=== PATIENT | male | born 1935 | race Caucasian/White ===

== ENCOUNTER 2019-07-18 12:12 | Inpatient (IN) ==
[2019-07-18] MEDS ORDERED: *HR* FentaNYL (PF) 100 MCG/2 ML VIAL IVP ONE (14:38)
[2019-07-18] MEDS ORDERED: Ondansetron ODT 4 MG TAB.RAPDIS SL PRN (14:45)
[2019-07-18] MEDS ORDERED: *HR* HYDROcodone/Acet 5/325 mg TABLET PO PRN (14:45)
[2019-07-18] MEDS ORDERED: *HR* Enoxaparin 40 MG/0.4 ML SYRINGE SQ ONE (15:58)
[2019-07-18] MEDS: Budesonide/Formoterol 160/4.5 1 PUFF INH IH SCH ×2 (16:22→19:54)
[2019-07-18] MEDS: *HR* OxyCODONE Immed Rel 5 MG TABLET PO PRN (18:20)
[2019-07-18] MEDS ORDERED: Isovue-370 500 ML BOTTLE IVP ONE (19:51)
[2019-07-19 02:15] LABS: ABG Base Excess 2 mEq/L (-2 to 3); ABG HCO3 25 mEq/L (21-27); ABG Oxygen Saturation 94 % (95-98); ABG PCO2 32 mmHg (35-45); ABG PO2 65 mmHg (85-104); ABG TCO2 26 mEq/L (20-26)
[2019-07-19] MEDS ORDERED: *HR* HYDROmorphone (PF) 1 MG/ML SYRINGE IVP ONE (02:36)
[2019-07-19 04:23] LABS: Basophils % 0.3 %; Eosinophils # 0.2 K/mcL (0.0-0.6); Eosinophils % 2.8 %; Hematocrit 37.4 % (37.5-50.1); Hemoglobin 12.3 g/dL (12.9-16.9); Immature Granulocytes % 0.3 % (0-4); Lymphocytes # 0.6 K/mcL (0.6-4.6); Lymphocytes % 10.4 %; Mean Corpuscular HGB Conc 32.9 g/dL (31.6-35.5); Mean Corpuscular Hemoglobin 31.1 pg (28.0-33.3); Mean Corpuscular Volume 94.7 fL (83.0-100.0); Mean Platelet Volume 10.3 fL (9.4-12.4); Monocytes # 0.7 K/mcL (0.0-1.3); Monocytes % 10.9 %; Neutrophils # 4.7 K/mcL (1.6-8.9); Platelet Count 179 K/mcL (140-400); Red Blood Count 3.95 M/mcL (4.19-5.50); Red Cell Distribution Width 13.6 % (11.5-14.5); Segmented Neutrophils % 75.3 %; White Blood Count 6.2 K/mcL (4.3-11.1)
[2019-07-19 04:42] LABS: BUN/Creatinine Ratio 28 (6-26); Blood Urea Nitrogen 23 mg/dL (8-23); Calcium 8.9 mg/dL (8.6-10.3); Carbon Dioxide 24 mEq/L (23-29); Chloride 103 mEq/L (98-107); Glucose 124 mg/dL (70-105); Osmolality,Calculated 285 (280-300); Potassium 4.1 mEq/L (3.5-5.1); Sodium 135 mEq/L (136-145); eGFR For African Americans > 60 (> 60); eGFR For Non-African Americans > 60 (> 60)
[2019-07-19] MEDS: Pantoprazole 40 MG VIAL IVP SCH (07:36)
[2019-07-19] MEDS: Carbidopa/Levodopa 25/250 TABLET PO SCH ×4 (08:02→17:41)
[2019-07-19] MEDS ORDERED: Furosemide 40 MG/4 ML VIAL IVP SCH (09:00)
[2019-07-19] MEDS: Budesonide/Formoterol 160/4.5 1 PUFF INH IH SCH ×2 (10:04→22:43)
[2019-07-19] MEDS: Tiotropium 18 MCG inhalation IH SCH (10:05)
[2019-07-19] MEDS ORDERED: *HR* Enoxaparin 40 MG/0.4 ML SYRINGE SQ ONE (10:31)
[2019-07-19] MEDS ORDERED: methylPREDNISolone 125 MG/2 ML VIAL IVP ONE (10:32)
[2019-07-19] MEDS ORDERED: Doxycycline 100 MG in 0.9 % Sodium Chloride Mini Bag 100 ML IVPB SCH (12:00)
[2019-07-19] MEDS: Acetaminophen 325 MG TABLET PO PRN (15:08)
[2019-07-19] MEDS ORDERED: *HR* Heparin 5,000 UNIT/ML VIAL IVP ONE (15:42)
[2019-07-19] MEDS ORDERED: *HR* Heparin 5,000 UNIT/ML VIAL IVP PRN ×2 (15:42)
[2019-07-19] MEDS ORDERED: Heparin 25,000 UNIT/250 ML D5W 25,000 UNIT/250 ML IV.SOLN IVC SCH (15:45)
[2019-07-19 16:47] LABS: Hematocrit 38.2 % (37.5-50.1); Hemoglobin 12.4 g/dL (12.9-16.9); Mean Corpuscular HGB Conc 32.5 g/dL (31.6-35.5); Mean Corpuscular Hemoglobin 30.7 pg (28.0-33.3); Mean Corpuscular Volume 94.6 fL (83.0-100.0); Mean Platelet Volume 10.9 fL (9.4-12.4); Platelet Count 180 K/mcL (140-400); Red Blood Count 4.04 M/mcL (4.19-5.50); Red Cell Distribution Width 13.8 % (11.5-14.5); White Blood Count 5.9 K/mcL (4.3-11.1)
[2019-07-19 16:49] LABS: Heparin anti-factor XA UFH 0.32 IU/mL (0.30-0.70); INR 1.3; Prothrombin Time 14.6 Seconds (9.4-12.1)
[2019-07-19] MEDS ORDERED: Ringers Solution, Lactated 1,000 ML ONE (16:59)
[2019-07-19] MEDS ORDERED: Ringers Solution, Lactated 1,000 ML IVC ONE (17:40)
[2019-07-19 17:56] LABS: Alanine Aminotransferase 3 Units/L (7-52); Albumin 3.8 g/dL (3.5-5.7); Albumin/Globulin Ratio 1.6 (1.1-2.2); Alkaline Phosphatase 82 Units/L (34-104); Aspartate Amino Transferase 14 Units/L (13-39); Bilirubin,Direct 0.5 mg/dL (0.0-0.2); Bilirubin,Total 1.5 mg/dL (0.3-1.0); Globulin 2.4 g/dL (2.4-3.5); Total Protein 6.2 g/dL (6.4-8.9); Troponin I < 0.03 ng/mL (< 0.04)
[2019-07-19] MEDS ORDERED: Doxycycline 200 MG in 0.9 % Sodium Chloride 250 ML IVPB SCH (18:00)
[2019-07-19] MEDS ORDERED: lisinopriL 10 MG TABLET PO SCH (18:30)
[2019-07-19] MEDS: Cefepime HCl 2,000 MG in Water for inj. (sterile) 20 ML IVP SCH (21:36)
[2019-07-19] MEDS: MetroNIDAZOLE 500 MG/100 ML 500 MG/100 ML BAG IVPB SCH (21:37)
[2019-07-20] MEDS: Acetaminophen 325 MG TABLET PO PRN (00:16)
[2019-07-20] MEDS ORDERED: Acetaminophen IV 1,000 MG/100 ML INFUS..BTL IVPB ONE (00:48)
[2019-07-20] MEDS ORDERED: *HR* Metoprolol 5 MG/5 ML VIAL IVP ONE ×2 (01:12→01:16)
[2019-07-20] MEDS: *HR* OxyCODONE Immed Rel 5 MG TABLET PO PRN (03:16)
[2019-07-20] MEDS: Cefepime HCl 2,000 MG in Water for inj. (sterile) 20 ML IVP SCH ×3 (04:02→20:29)
[2019-07-20] MEDS: MetroNIDAZOLE 500 MG/100 ML 500 MG/100 ML BAG IVPB SCH ×2 (04:02→14:30)
[2019-07-20] MEDS: DilTIAZem 50 MG in 0.9 % Sodium Chloride 40 ML IVC SCH (05:08)
[2019-07-20 06:30] LABS: Basophils % 0.1 %; Hematocrit 36.3 % (37.5-50.1); Hemoglobin 11.8 g/dL (12.9-16.9); Immature Granulocytes % 0.5 % (0-4); Lymphocytes # 0.3 K/mcL (0.6-4.6); Lymphocytes % 2.2 %; Mean Corpuscular HGB Conc 32.5 g/dL (31.6-35.5); Mean Corpuscular Hemoglobin 30.9 pg (28.0-33.3); Mean Platelet Volume 10.7 fL (9.4-12.4); Monocytes # 1.1 K/mcL (0.0-1.3); Monocytes % 8.4 %; Neutrophils # 12.1 K/mcL (1.6-8.9); Platelet Count 207 K/mcL (140-400); Red Blood Count 3.82 M/mcL (4.19-5.50); Red Cell Distribution Width 13.7 % (11.5-14.5); Segmented Neutrophils % 88.8 %; White Blood Count 13.6 K/mcL (4.3-11.1)
[2019-07-20 06:50] LABS: Alanine Aminotransferase 10 Units/L (7-52); Albumin 3.8 g/dL (3.5-5.7); Albumin/Globulin Ratio 1.7 (1.1-2.2); Alkaline Phosphatase 77 Units/L (34-104); Aspartate Amino Transferase 20 Units/L (13-39); BUN/Creatinine Ratio 31 (6-26); Bilirubin,Total 1.7 mg/dL (0.3-1.0); Blood Urea Nitrogen 30 mg/dL (8-23); Calcium 9.4 mg/dL (8.6-10.3); Carbon Dioxide 23 mEq/L (23-29); Chloride 104 mEq/L (98-107); Globulin 2.3 g/dL (2.4-3.5); Glucose 137 mg/dL (70-105); Magnesium 1.9 mg/dL (1.6-2.6); Osmolality,Calculated 296 (280-300); Phosphorous 2.8 mg/dL (2.7-4.5); Potassium 4.2 mEq/L (3.5-5.1); Sodium 139 mEq/L (136-145); Total Protein 6.1 g/dL (6.4-8.9); eGFR For African Americans > 60 (> 60); eGFR For Non-African Americans > 60 (> 60)
[2019-07-20] MEDS: Carbidopa/Levodopa 25/250 TABLET PO SCH ×4 (07:43→18:00)
[2019-07-20] MEDS: Pantoprazole 40 MG VIAL IVP SCH (07:44)
[2019-07-20] MEDS: Tiotropium 18 MCG inhalation IH SCH (07:54)
[2019-07-20] MEDS: Budesonide/Formoterol 160/4.5 1 PUFF INH IH SCH ×2 (07:55→21:41)
[2019-07-20] MEDS ORDERED: *HR* Midazolam HCl 2 MG/2 ML VIAL IV ONE (09:06)
[2019-07-20] MEDS ORDERED: *HR* Etomidate 20 MG/10 ML AMPUL IVP ONE (09:06)
[2019-07-20] MEDS ORDERED: *HR* Midazolam HCl 5 MG/5 ML VIAL IVP ONE (09:06)
[2019-07-20] MEDS ORDERED: Amiodarone Premix 360 MG/200 ML BAG IVC ONE ×2 (09:22→09:28)
[2019-07-20] MEDS ORDERED: Amiodarone Premix 150 MG/100 ML BAG IVPB ONE (09:22)
[2019-07-20] MEDS ORDERED: *HR* Magnesium Sulfate 2 GM/50 ML PIGGYBACK IVPB ONE (09:31)
[2019-07-20] MEDS ORDERED: *HR* Norepinephrine 4 MG/4 ML VIAL IVC ONE (09:31)
[2019-07-20] MEDS ORDERED: *HR* Adenosine 6 MG/2 ML SYRINGE IVP ONE (09:31)
[2019-07-20] MEDS ORDERED: *HR* EPINEPHrine 1 MG/10 ML SYRINGE IVP ONE (09:31)
[2019-07-20] MEDS: Dexmedetomidine HCl 400 MCG/100 ML MLS IVC SCH (09:47)
[2019-07-20] MEDS ORDERED: *HR* LORazepam 2 MG/ML VIAL ONE (09:54)
[2019-07-20 10:35] LABS: ABG Base Excess -5 mEq/L (-2 to 3); ABG HCO3 21 mEq/L (21-27); ABG Oxygen Saturation 95 % (95-98); ABG PCO2 40 mmHg (35-45); ABG PH 7.33 pH Units (7.32-7.45); ABG PO2 78 mmHg (85-104); ABG TCO2 22 mEq/L (20-26)
[2019-07-20] MEDS ORDERED: *HR* LORazepam 2 MG/ML VIAL IVP ONE (10:35)
[2019-07-20] MEDS ORDERED: Phenylephrine 10 MG in 0.9 % Sodium Chloride 250 ML IVC SCH (10:45)
[2019-07-20] MEDS ORDERED: Ringers Solution, Lactated 1,000 ML ONE (11:07)
[2019-07-20] MEDS: Norepinephrine 4 MG in 0.9 % Sodium Chloride 250 ML IVC SCH ×4 (11:35→22:54)
[2019-07-20] MEDS ORDERED: *HR* Midazolam HCl 2 MG/2 ML VIAL IVP PRN (11:49)
[2019-07-20 11:51] LABS: ABG Base Excess -6 mEq/L (-2 to 3); ABG HCO3 21 mEq/L (21-27); ABG Oxygen Saturation 100 % (95-98); ABG PCO2 44 mmHg (35-45); ABG PH 7.28 pH Units (7.32-7.45); ABG PO2 473 mmHg (85-104); ABG TCO2 22 mEq/L (20-26); Blood Gas Modality ASSIST CONTROL; Blood Gas VT 500 cc
[2019-07-20] MEDS ORDERED: Ringers Solution, Lactated 1,000 ML IVC ONE (12:08)
[2019-07-20] MEDS: FentaNYL (PF) 1,000 MCG in 0.9 % Sodium Chloride 80 ML IVC SCH ×2 (12:10→18:09)
[2019-07-20 13:11] LABS: Basophils % 0.1 %; Hematocrit 34.3 % (37.5-50.1); Hemoglobin 11.2 g/dL (12.9-16.9); Immature Granulocytes % 1.8 % (0-4); Lymphocytes # 0.3 K/mcL (0.6-4.6); Lymphocytes % 1.4 %; Mean Corpuscular HGB Conc 32.7 g/dL (31.6-35.5); Mean Corpuscular Hemoglobin 30.9 pg (28.0-33.3); Mean Corpuscular Volume 94.5 fL (83.0-100.0); Mean Platelet Volume 10.6 fL (9.4-12.4); Monocytes # 1.9 K/mcL (0.0-1.3); Monocytes % 9.1 %; Neutrophils # 18.7 K/mcL (1.6-8.9); Platelet Count 221 K/mcL (140-400); Red Blood Count 3.63 M/mcL (4.19-5.50); Red Cell Distribution Width 13.5 % (11.5-14.5); Segmented Neutrophils % 87.6 %
[2019-07-20 13:16] LABS: VBG Ionized Calcium 1.24 mmol/L (1.15-1.35)
[2019-07-20] MEDS ORDERED: 0.9 % Sodium Chloride 1,000 ML ONE (13:18)
[2019-07-20 13:24] LABS: White Blood Count 21.3 K/mcL (4.3-11.1)
[2019-07-20 13:30] LABS: Alanine Aminotransferase 9 Units/L (7-52); Albumin 3.4 g/dL (3.5-5.7); Albumin/Globulin Ratio 1.4 (1.1-2.2); Alkaline Phosphatase 71 Units/L (34-104); Aspartate Amino Transferase 33 Units/L (13-39); BUN/Creatinine Ratio 31 (6-26); Bilirubin,Total 1.7 mg/dL (0.3-1.0); Blood Urea Nitrogen 34 mg/dL (8-23); Calcium 9.8 mg/dL (8.6-10.3); Carbon Dioxide 22 mEq/L (23-29); Chloride 105 mEq/L (98-107); Globulin 2.4 g/dL (2.4-3.5); Glucose 259 mg/dL (70-105); Osmolality,Calculated 305 (280-300); Potassium 3.4 mEq/L (3.5-5.1); Sodium 139 mEq/L (136-145); Total Protein 5.8 g/dL (6.4-8.9); eGFR For African Americans > 60 (> 60); eGFR For Non-African Americans > 60 (> 60)
[2019-07-20] MEDS ORDERED: *HR* Midazolam HCl 2 MG/2 ML VIAL IVP ONE (13:35)
[2019-07-20] MEDS ORDERED: Vasopressin 40 UNIT in D5% in Water 100 ML IVC SCH (13:45)
[2019-07-20] MEDS ORDERED: Calcium Chloride 1,000 MG in 0.9 % Sodium Chloride 100 ML IVPB STA (14:06)
[2019-07-20] MEDS: Amiodarone Premix 360 MG/200 ML BAG IVC SCH (15:12)
[2019-07-20 15:41] LABS: ABG Base Excess 1 mEq/L (-2 to 3); ABG HCO3 25 mEq/L (21-27); ABG Oxygen Saturation 100 % (95-98); ABG PCO2 39 mmHg (35-45); ABG PH 7.42 pH Units (7.32-7.45); ABG PO2 162 mmHg (85-104); ABG TCO2 27 mEq/L (20-26); Blood Gas VT 500 cc
[2019-07-20] MEDS ORDERED: *HR* Heparin 5,000 UNIT/ML VIAL IVP PRN ×2 (17:58)
[2019-07-20] MEDS ORDERED: *HR* Heparin 5,000 UNIT/ML VIAL IVP ONE (17:58)
[2019-07-20] MEDS: Hydrocortisone Sodium Succ 100 MG/2 ML VIAL IVP SCH (18:00)
[2019-07-20 18:47] LABS: Hematocrit 32.6 % (37.5-50.1); Hemoglobin 10.6 g/dL (12.9-16.9); Mean Corpuscular HGB Conc 32.5 g/dL (31.6-35.5); Mean Corpuscular Hemoglobin 31.5 pg (28.0-33.3); Mean Corpuscular Volume 96.7 fL (83.0-100.0); Mean Platelet Volume 10.5 fL (9.4-12.4); Platelet Count 195 K/mcL (140-400); Red Blood Count 3.37 M/mcL (4.19-5.50); Red Cell Distribution Width 13.8 % (11.5-14.5); White Blood Count 15.7 K/mcL (4.3-11.1)
[2019-07-20 18:50] LABS: INR 1.3; Prothrombin Time 14.4 Seconds (9.4-12.1)
[2019-07-20 18:56] LABS: Heparin anti-factor XA UFH 1.17 IU/mL (0.30-0.70)
[2019-07-20] MEDS ORDERED: Perflutren Lipid Microsphere 1.3 ML in 0.9 % Sodium Chloride 8.7 ML IVP ONE (19:27)
[2019-07-20] MEDS: Heparin 25,000 UNIT/250 ML D5W 25,000 UNIT/250 ML IV.SOLN IVC SCH (21:58)
[2019-07-21] MEDS: Hydrocortisone Sodium Succ 100 MG/2 ML VIAL IVP SCH ×5 (00:02→23:44)
[2019-07-21] MEDS: Amiodarone Premix 360 MG/200 ML BAG IVC SCH ×2 (03:21→15:30)
[2019-07-21] MEDS: FentaNYL (PF) 1,000 MCG in 0.9 % Sodium Chloride 80 ML IVC SCH ×2 (03:51→13:34)
[2019-07-21] MEDS: Cefepime HCl 2,000 MG in Water for inj. (sterile) 20 ML IVP SCH ×3 (03:53→19:52)
[2019-07-21] MEDS: DilTIAZem 50 MG in 0.9 % Sodium Chloride 40 ML IVC SCH (03:55)
[2019-07-21 03:59] LABS: ABG Base Excess 2 mEq/L (-2 to 3); ABG HCO3 27 mEq/L (21-27); ABG Oxygen Saturation 99 % (95-98); ABG PCO2 43 mmHg (35-45); ABG PO2 124 mmHg (85-104); ABG TCO2 28 mEq/L (20-26); Blood Gas Modality ASSIST CONTROL; Blood Gas VT 500 cc
[2019-07-21 04:47] LABS: Basophils % 0.1 %; Hematocrit 31.7 % (37.5-50.1); Hemoglobin 10.3 g/dL (12.9-16.9); Lymphocytes # 0.4 K/mcL (0.6-4.6); Lymphocytes % 3.5 %; Mean Corpuscular HGB Conc 32.5 g/dL (31.6-35.5); Mean Corpuscular Hemoglobin 31.4 pg (28.0-33.3); Mean Corpuscular Volume 96.6 fL (83.0-100.0); Mean Platelet Volume 11.1 fL (9.4-12.4); Monocytes # 0.9 K/mcL (0.0-1.3); Monocytes % 7.4 %; Neutrophils # 10.1 K/mcL (1.6-8.9); Platelet Count 171 K/mcL (140-400); Red Blood Count 3.28 M/mcL (4.19-5.50); Red Cell Distribution Width 13.8 % (11.5-14.5); White Blood Count 11.4 K/mcL (4.3-11.1)
[2019-07-21 05:07] LABS: BUN/Creatinine Ratio 45 (6-26); Blood Urea Nitrogen 37 mg/dL (8-23); Calcium 8.3 mg/dL (8.6-10.3); Carbon Dioxide 23 mEq/L (23-29); Chloride 108 mEq/L (98-107); Glucose 148 mg/dL (70-105); Osmolality,Calculated 299 (280-300); Potassium 4.2 mEq/L (3.5-5.1); Sodium 139 mEq/L (136-145); Vancomycin,Random 6 mcg/mL; eGFR For African Americans > 60 (> 60); eGFR For Non-African Americans > 60 (> 60)
[2019-07-21] MEDS: Budesonide/Formoterol 160/4.5 1 PUFF INH IH SCH ×2 (07:37→21:42)
[2019-07-21] MEDS: Pantoprazole 40 MG VIAL IVP SCH (08:27)
[2019-07-21] MEDS: Carbidopa/Levodopa 25/250 TABLET PO SCH ×4 (09:36→18:12)
[2019-07-21 09:38] LABS: Alanine Aminotransferase 10 Units/L (7-52); Albumin 3.2 g/dL (3.5-5.7); Albumin/Globulin Ratio 1.5 (1.1-2.2); Alkaline Phosphatase 62 Units/L (34-104); Aspartate Amino Transferase 22 Units/L (13-39); Bilirubin,Direct 0.2 mg/dL (0.0-0.2); Bilirubin,Indirect 0.5 mg/dL (0.0-1.0); Bilirubin,Total 0.7 mg/dL (0.3-1.0); Globulin 2.1 g/dL (2.4-3.5); Total Protein 5.3 g/dL (6.4-8.9)
[2019-07-21] MEDS: Dexmedetomidine HCl 400 MCG/100 ML MLS IVC SCH (09:54)
[2019-07-21] MEDS: Albumin Human 5% 12.5 GM/250 ML IV.SOLN IVC SCH ×2 (10:41→13:26)
[2019-07-21] MEDS ORDERED: Isovue-370 500 ML BOTTLE IVP ONE (10:42)
[2019-07-21] MEDS: MetroNIDAZOLE 500 MG/100 ML 500 MG/100 ML BAG IVPB SCH ×2 (12:25→19:52)
[2019-07-21] MEDS ORDERED: Artificial Tears SOLN 15 ML BOTTLE BOTH EYES PRN (12:27)
[2019-07-21] MEDS: Chlorhexidine Rinse 15 ML MOUTHWASH MM SCH ×2 (13:29→19:51)
[2019-07-21 14:30] LABS: ABG Base Excess 2 mEq/L (-2 to 3); ABG HCO3 25 mEq/L (21-27); ABG Oxygen Saturation 97 % (95-98); ABG PCO2 34 mmHg (35-45); ABG PH 7.48 pH Units (7.32-7.45); ABG PO2 88 mmHg (85-104); ABG TCO2 27 mEq/L (20-26); Blood Gas VT 500 cc
[2019-07-21] MEDS: Artificial Tears SOLN 15 ML BOTTLE BOTH EYES SCH ×3 (16:34→23:35)
[2019-07-21] MEDS: Heparin 25,000 UNIT/250 ML D5W 25,000 UNIT/250 ML IV.SOLN IVC SCH (16:48)
[2019-07-22] MEDS: FentaNYL (PF) 1,000 MCG in 0.9 % Sodium Chloride 80 ML IVC SCH ×2 (00:12→11:35)
[2019-07-22] MEDS: Amiodarone Premix 360 MG/200 ML BAG IVC SCH ×2 (02:58→15:36)
[2019-07-22] MEDS: Heparin 25,000 UNIT/250 ML D5W 25,000 UNIT/250 ML IV.SOLN IVC SCH (02:59)
[2019-07-22] MEDS: Artificial Tears SOLN 15 ML BOTTLE BOTH EYES SCH ×4 (03:27→16:48)
[2019-07-22] MEDS: MetroNIDAZOLE 500 MG/100 ML 500 MG/100 ML BAG IVPB SCH ×2 (03:29→10:53)
[2019-07-22] MEDS: Cefepime HCl 2,000 MG in Water for inj. (sterile) 20 ML IVP SCH ×2 (03:29→10:53)
[2019-07-22 03:30] LABS: Hematocrit 27.4 % (37.5-50.1); Immature Granulocytes % 0.6 % (0-4); Lymphocytes # 0.2 K/mcL (0.6-4.6); Lymphocytes % 3.6 %; Mean Corpuscular HGB Conc 31.8 g/dL (31.6-35.5); Mean Corpuscular Hemoglobin 30.6 pg (28.0-33.3); Mean Corpuscular Volume 96.5 fL (83.0-100.0); Mean Platelet Volume 11.1 fL (9.4-12.4); Monocytes # 0.5 K/mcL (0.0-1.3); Monocytes % 6.7 %; Platelet Count 119 K/mcL (140-400); Red Blood Count 2.84 M/mcL (4.19-5.50); Red Cell Distribution Width 14.6 % (11.5-14.5); Segmented Neutrophils % 89.1 %; White Blood Count 6.7 K/mcL (4.3-11.1)
[2019-07-22 03:34] LABS: Hemoglobin 8.7 g/dL (12.9-16.9)
[2019-07-22 03:39] LABS: ABG Base Excess 3 mEq/L (-2 to 3); ABG HCO3 28 mEq/L (21-27); ABG Oxygen Saturation 96 % (95-98); ABG PCO2 43 mmHg (35-45); ABG PH 7.41 pH Units (7.32-7.45); ABG PO2 81 mmHg (85-104); ABG TCO2 29 mEq/L (20-26); Blood Gas Modality ASSIST CONTROL; Blood Gas VT 500 cc
[2019-07-22 03:50] LABS: BUN/Creatinine Ratio 64 (6-26); Blood Urea Nitrogen 43 mg/dL (8-23); Calcium 8.6 mg/dL (8.6-10.3); Carbon Dioxide 25 mEq/L (23-29); Chloride 110 mEq/L (98-107); Glucose 140 mg/dL (70-105); Osmolality,Calculated 301 (280-300); Potassium 3.8 mEq/L (3.5-5.1); Sodium 139 mEq/L (136-145); eGFR For African Americans > 60 (> 60); eGFR For Non-African Americans > 60 (> 60)
[2019-07-22] MEDS: Hydrocortisone Sodium Succ 100 MG/2 ML VIAL IVP SCH (06:01)
[2019-07-22] MEDS: Carbidopa/Levodopa 25/250 TABLET PO SCH ×4 (06:01→18:13)
[2019-07-22] MEDS: Budesonide/Formoterol 160/4.5 1 PUFF INH IH SCH (07:16)
[2019-07-22] MEDS ORDERED: Furosemide 20 MG/2 ML VIAL IVP ONE (08:09)
[2019-07-22] MEDS: Pantoprazole 40 MG VIAL IVP SCH (08:54)
[2019-07-22] MEDS: Chlorhexidine Rinse 15 ML MOUTHWASH MM SCH (08:54)
[2019-07-22 11:18] LABS: Magnesium 2.3 mg/dL (1.6-2.6); Potassium 3.9 mEq/L (3.5-5.1)
[2019-07-22] MEDS ORDERED: Potassium Chloride Elixir 20 MEQ/15 ML UDC GTUBE PRN (12:58)
[2019-07-22] MEDS ORDERED: *HR* Heparin 5,000 UNIT/ML VIAL IVP PRN ×2 (13:21)
[2019-07-22] MEDS ORDERED: *HR* Heparin 5,000 UNIT/ML VIAL IVP ONE (13:21)
[2019-07-22] MEDS ORDERED: Heparin 25,000 UNIT/250 ML D5W 25,000 UNIT/250 ML IV.SOLN IVC SCH (13:30)
[2019-07-22 14:39] LABS: ABG Base Excess 2 mEq/L (-2 to 3); ABG HCO3 26 mEq/L (21-27); ABG Oxygen Saturation 92 % (95-98); ABG PCO2 36 mmHg (35-45); ABG PH 7.46 pH Units (7.32-7.45); ABG PO2 60 mmHg (85-104); ABG TCO2 27 mEq/L (20-26); Blood Gas Modality ASSIST CONTROL
[2019-07-22 14:51] LABS: Mean Corpuscular HGB Conc 32.1 g/dL (31.6-35.5); Mean Corpuscular Volume 96.6 fL (83.0-100.0); Mean Platelet Volume 11.2 fL (9.4-12.4); Platelet Count 142 K/mcL (140-400); Red Cell Distribution Width 14.5 % (11.5-14.5); White Blood Count 8.3 K/mcL (4.3-11.1)
[2019-07-22 15:01] LABS: Appearance of Body Fluid Hazy (Clear); Volume of Body Fluid 21 mL
[2019-07-22 15:21] LABS: Appearance of Body Fluid Slightly Hazy (Clear); Volume of Body Fluid 12 mL
[2019-07-22] MEDS: Norepinephrine 4 MG in 0.9 % Sodium Chloride 250 ML IVC SCH (18:07)
[2019-07-22 18:10] VITALS: BP 130/68
[2019-07-22] MEDS ORDERED: Aminoglycoside Consult 1 EACH MC ONE (19:24)
[2019-07-23] MEDS ORDERED: Potassium Chloride Elixir 20 MEQ/15 ML UDC GTUBE SCH (09:00)
== END 2019-07-22 19:25 | disposition other institution (70) | DRG 166 ==
LOC: 3NENU → 2NENU 15:49 → 3NENU 07-19 22:19 → ICNU 07-20 09:01
PROVIDERS: ADMIT Internal Medicine; ATTEND Internal Medicine